=== PATIENT | female | born 2005 | race African-American/Black ===

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

== ENCOUNTER 2024-08-22 11:31 | Emergency (ER) | payer MEDICAID, OTHER ==
[~2024-08-22] VITALS: Ht 165.1 cm; Wt 69.0 kg
[~2024-08-22 11:31] MED LIST changes: +AMOX-424 MT; +IBUP-2029 MT; +METO-293 MT
[2024-08-22 11:52] VITALS: O2SAT 100
[2024-08-22 11:57] VITALS: BP 131/53; PULSE 98; RESP 16; TEMP 98.4; O2SAT 100
== END 2024-08-22 17:32 ==
LOC: ER 11:31
DX: S01.01XD Laceration without foreign body of scalp, subsequent encounter (principal); F12.10 Cannabis abuse, uncomplicated; Z48.02 Encounter for removal of sutures; X58.XXXD Exposure to other specified factors, subsequent encounter
CPT/HCPCS: 99281